=== PATIENT | male | born 1985 | race Hispanic/Latino ===

== ENCOUNTER 2022-11-02 14:30 | Emergency (ER) | payer BC ==
--- OUTSIDE RECORDS SUMMARY | 2022-11-02 14:34 | XMS REPORT | Continuity of Care Document ---
:1985 Author Organization [facility] t Address [address] [place] [address] Care Team Providers Name Role Phone JUVE CERNA Primary Care Physician Unavailable DR PARVIZ LEUNG Attending Clinician Unavailable [phone] Attending Clinician Unavailable [id number] Attending Clinician Unavailable [facility] DR JUVE CERNA Attending Clinician Unavailable [phone] Attending Clinician Unavailable Kj Attending Clinician Unavailable DR PARVIZ LEUNG Admitting Clinician Unavailable DR JUVE CERNA Admitting Clinician Unavailable Kj Admitting Clinician Unavailable Payers Payer Name Policy Type Policy Number Effective Date Expiration Date S cole TOVAR CROSS [place] [id number] [facility] [place] [id number] 2021 00:00:00 [place] Problems Condition Condition Condition Status Onset Resolution Last Treating Co mments Source Name Details Category Date Date Treatment Clinician Date Dizziness Dizziness Problem Active [facility] 6-05 da 00:00: Medical 00 Group Prediabete Prediabete Problem Active [facility] s s 6-05 da 00:00: Medical 00 Group Patient Patient Problem Active [facility] new to New to 6-05 da provider Provider 00:00: Medica l 00 Group Benign Benign Problem Active [facility] essential Essential 6-05 da hypertensi Hypertensi 00:00: Me dical on on 00 Group Gastroesop Gastroesop Problem Active [facility] hageal hageal 6-05 da reflux Reflux 00:00: Medical disease Disease 00 Group without without esophagiti Esophagiti s s Allergies, Adverse Reactions, Alerts This patient has no known allergies or adverse reactions. Social History Social Habit Start Date Stop Date Quantity Comments Source Gender identity [facility] History of Social 2022-10-25 2022-10-25 [facility] function 00:00:00 00:00:00 Sex Ass[birth year] Met [facility] 00:00:00 00:00:00 Smoking Status Start Date Stop Date Source Heavy Tobacco Smoker [facility] Tobacco smoking consumption unknown [facility] Medications Ordered Filled Start Stop Current Ordering Indication Dosage Frequency Signature Comments Components Source Medication Medication Date Date Medication? Clinician (SIG) Name Name acetaminoph 2022- [place] [address] 1{tbl} Q6H Take 1-2 Method[facility] en-codeine 10-25-[address] (TYLENOL 00:00: 04:59 mouth Hospita WITH 00 :00 every 6 l CODEINE #3) (six) 300-30 mg hours as per tablet needed for moderate pain for up to 5 days .acute pain. cyclobenzap 2022- No 10mg Q.5D Take 1 Met hodi rine 10-25-10 tablet (10 st (FLEXERIL) 00:00: 04:59 mg total) H ospita 10 mg 00 :00 by mouth 2 l tablet (two) times a day as needed for muscle spasms for up to 5 days. methylPREDN 2022- No follow Met hodi ISolone 10-25-[address] (MEDROL 00:00: 04:59 directions Hos mick DOSEPAK) 4 00 :00 l mg tablet lisinopril lisinopril No lisinopril [facility] 20 mg 20 mg 20 mg da tablet TAKE tablet TAKE tablet Medical 1 TABLET 1 TABLET TAKE 1 Group (20 MG) BY (20 MG) BY TABLET (20 ORAL ROUTE ORAL ROUTE MG) BY ONCE DAILY ONCE DAILY ORAL ROUTE ONCE DAILY metformin metformin No metformin [facility] 500 mg 500 mg 500 mg da tablet TAKE tablet TAKE tablet Medical 1 TABLET 1 TABLET TAKE 1 Group (500 MG) BY (500 MG) BY TABLET ORAL ROUTE ORAL ROUTE (500 MG) ONCE DAILY ONCE DAILY BY ORAL ROUTE ONCE DAILY pantoprazol pantoprazol No 1 Q1D pantoprazo [place] e 40 mg e 40 mg le 40 mg da tablet,harsha tablet,harsha tablet,del Medical yed release yed release ayed G roup Take 1 Take 1 release tablet tablet Take 1 every day every day tablet by oral by oral every day route. route. by oral route. Vital Signs Vital Name Observation Time Observation Value Comments Source BP Diastolic 2021-11-24 00:00:00 86 mm[Hg] [facility] Height 2021-11-24 00:00:00 66 [in_i] [facility] BMI (Body Mass 2021-11-24 00:00:00 37.9 kg/m2 [facility]) Group BP Systolic 2021-11-24 00:00:00 127 mm[Hg] [facility] Body Weight 2021-11-24 00:00:00 3760 [oz_av] [facility] Systolic blood 2022-10-25 17:20:58 138 mm[Hg] [facility] pressure Diastolic blood 2022-10-25 17:20:58 81 mm[Hg] [facility] pressure Heart rate 2022-10-25 17:20:58 79 /min [facility] Body temperature 2022-10-25 17:20:58 36.56 [facility] Respiratory rate 2022-10-25 17:20:58 18 /min [facility] Oxygen saturation in 2022-10-25 17:20:58 99 /min [facility] Arterial blood by Pulse oximetry Body height 2022-10-25 17:20:00 167.6 cm [facility] Body weight 2022-10-25 17:20:00 113.399 kg [facility] BMI 2022-10-25 17:20:00 40.35 kg/m2 [facility] Procedures This patient has no known procedures. Plan of Care Planned Activity Planned Date Details Comments Source Diagnostic Test Pending 2021-11-24 CMP, serum or [facility] 00:00:00 plasma [code = Group CMP, serum or plasma] Diagnostic Test Pending 2021-11-24 lipid panel, [facility] 00:00:00 serum [code = Group lipid panel, serum] Diagnostic Test Pending 2021-11-24 [facility] [code = TSH Group + free T4, serum] Diagnostic Test Pending 2021-11-24 HbA1c (hemoglobin [facility] 00:00:00 A1c), blood [code Group = HbA1c (hemoglobin A1c), blood] Diagnostic Test Pending 2021-11-24 microalbumin/crea [facility] 00:00:00 tinine, mass Group ratio, urine [code = microalbumin/crea tinine, mass ratio, urine] Diagnostic Test Pending 2021-11-24 urinalysis, [facility] 00:00:00 reflex culture Group [code = urinalysis, reflex culture] Instructions [facility] Encounters Start End Encounter Admission Attending Care Care Encounter Source Date/Time Date/Time Type Type Clinicians Facility Department ID 2022-07-09 Outpatient ELCAMPO ELCAMPO [id number] El 13:23:48 [id number] [facility] 2022-06-29 Outpatient PARVIZ LEUNG [place] [place] [place] [id number] [place] 08:28:18 [id number] [facility] [place] [facility] [id number] [facility] 2022-06-26 Outpatient ELCAMPO ELCAMPO [id number] El 12:36:33 [id number] [facility] 2022-10-25 2022-10-25 Emergency Whyte, [id number] [facility] 12:44:00 13:31:00 Adriel [id number] 3.430.2.7 Hospit a .[id number] l .8 2022-10-25 2022-10-25 Emergency [facility] [id number] 00:00:00 00:00:00 ADRIEL Wilcox [facility] 2022-10-25 2022-10-25 Travel [id number] [facility] 00:00:00 00:00:[id number] 3.430.2.7 0.2.7.3.698 Ho spita .[id number] 084.8 l .8 2022-07-09 2022-07-09 Outpatient N JUVE CERNAPO NON [facility] [id number] El 13:33:00 13:33:00 [id number] [facility] 2022-02-21 2022-02-21 Outpatient [facility]uniga[facility]S [facility] [id number] [facility] 00:00:00 00:00:00 [id number] da Medical Group 2022-01-17 2022-01-17 Outpatient [facility] [id number] [facility] 00:00:00 00:00:00 0727 da Medical Group 2021-11-30 2021-11-30 Outpatient Zuniga_S [facility] [id number] [facility] 05:53:00 05:53:00 [id number] Medical Group 2021-11-24 2021-11-24 Outpatient Zuniga_S [facility] [id number] [place] 09:42:00 09:42:00 0603 da Medical Group 2021-11-24 2021-11-24 Nilsa [facility] [place] - [id number] [facility] 00:00:00 00:00:00 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 2021-11-23 2021-11-23 Outpatient [facility]uniga_S [facility] [id number] [facility] 12:57:00 12:57:00 0602 Medical Group Results This patient has no known results.
[2022-11-02] MEDS ORDERED: GABAPENTIN 300 MG CAP ONE (15:14)
[2022-11-02] MEDS ORDERED: KETOROLAC 30 MG/ML INJ ONE (15:14)
[2022-11-02] MEDS ORDERED: DIAZEPAM 5 MG TABLET ONE (15:14)
--- NOTE | 2022-11-02 16:32 | ER ---
Nurse's Notes [facility] Name: Wojciech Mesa Age: 37 yrs Sex: Male : 1985 Arrival Date: 11/02/2022 Time: 14:30 Bed 15 Private MD: Diagnosis: Low back pain;Radiculopathy, lumbar region Presentation: 11/02 14:56 Chief complaint: Severe low back pain that radiates to leg after chiropractor treatment hb yesterday. Coronavirus screen: At this time, the client does not indicate any symptoms associated with coronavirus-19. Ebola Screen: No symptoms or risks identified at this time. Initial Sepsis Screen: Does the patient meet any 2 criteria? No. Patient's initial sepsis screen is negative. Does the patient have a suspected source of infection? No. Patient's initial sepsis screen is negative. Risk Assessment: Do you want to hurt yourself or someone else? Patient reports no desire to harm self or others. Onset of symptoms was November 02, 2022. 14:56 Method Of Arrival: Wheelchair hb 14:56 Acuity: ARUNA 3 hb Historical: - Allergies: 14:57 No Known Allergies; hb - Home Meds: 14:57 Lisinopril Oral [Active]; Metformin Oral [Active]; hb - PMHx: 14:57 Hypertension; hb - PSHx: 14:58 None; hb - Immunization history:: Adult Immunizations up to date. - Social history:: Smoking status: Patient reports the use of cigarette tobacco products, smokes one-half pack cigarettes per day. Vital Signs: 14:56 BP 140 / 103; Pulse 62; Resp 16; Temp 98; Pulse Ox 100% ; Weight 113.4 kg; Height 5 ft. hb 6 in. ; Pain 10/10; 16:00 BP 117 / 91; Pulse 54; Resp 18; Pulse Ox 99% on R/A; eh3 14:56 Body Mass Index 40.35 (113.40 kg, 167.64 cm) hb 14:56 Pain Scale: Adult hb ED Course: 14:35 Patient arrived in ED. ts1 14:50 Latesha De Guzman FNP-C is [facility]. snw 14:50 Narciso Lutz MD is Attending Physician. snw 14:57 Triage completed. hb 14:58 Arm band placed on. hb 14:59 Ledy Monteiro, RN is Primary Nurse. 3 Administered Medications: 15:15 Drug: Ketorolac IM 30 mg Route: IM; Site: left deltoid; 3 16:15 Follow up: Response: No adverse reaction eh3 15:15 Drug: Gabapentin PO 600 mg Route: PO; eh3 16:15 Follow up: Response: No adverse reaction 3 15:15 Drug: Diazepam PO 10 mg Route: PO; eh3 16:15 Follow up: Response: No adverse reaction 3 Outcome: 16:32 Discharge ordered by . snw 16:53 Patient left the ED. zm Signatures: Latesha De Guzman, GAUGE MAKER APPRENTICE-C GAUGE MAKER APPRENTICE-Csnw Delaney Lane RN RN hb Hall, Erin, JOSE RN 3 Jessica Marley Tanya, PAS BANNER ts1
--- NOTE | 2022-11-02 16:32 | EDPHYS ---
Physician Documentation [facility] Name: Wojciech Mesa Age: 37 yrs Sex: Male : 1985 Arrival Date: 11/02/2022 Time: 14:30 Bed 15 Private MD: ED Physician Narciso Lutz HPI: 11/02 15:05 This 37 yrs old Male presents to ER via Wheelchair with complaints of Back snw Pain. 15:05 The patient presents with pain that is acute, s/p chiropractic manipulation yesterday. snw The symptoms are located in the low back. Onset: The symptoms/episode began/occurred acutely. The pain radiates to the right gluteal fold, right hamstring, posterior aspect of right knee and right calf. Associated signs and symptoms: The patient has no apparent associated signs or symptoms. The problem was sustained pt has hx of low back pain, was seeing trippiece, went somewhere else yesterday, x-rays performed prior to manipulation. Pt states when he awoke to get out of bed for work, he was unable to move. no incontinence. Severity of symptoms: At their worst the symptoms were moderate, severe. The patient has experienced similar episodes in the past, but today's symptoms are worse, more painful. as noted. Historical: - Allergies: 14:57 No Known Allergies; hb - Home Meds: 14:57 Lisinopril Oral [Active]; Metformin Oral [Active]; hb - PMHx: 14:57 Hypertension; hb - PSHx: 14:58 None; hb - Immunization history:: Adult Immunizations up to date. - Social history:: Smoking status: Patient reports the use of cigarette tobacco products, smokes one-half pack cigarettes per day. ROS: 15:03 Constitutional: Negative for fever, chills, and weight loss, Eyes: Negative for injury, snw pain, redness, and discharge, ENT: Negative for injury, pain, and discharge, Neck: Negative for injury, pain, and swelling, Cardiovascular: Negative for chest pain, palpitations, and edema, Respiratory: Negative for shortness of breath, cough, wheezing, and pleuritic chest pain, Abdomen/GI: Negative for abdominal pain, nausea, vomiting, diarrhea, and constipation, : Negative for injury, bleeding, discharge, and swelling, MS/Extremity: Negative for injury and deformity, Skin: Negative for injury, rash, and discoloration, Neuro: Negative for headache, weakness, numbness, tingling, and seizure, Psych: Negative for depression, anxiety, suicide ideation, homicidal ideation, and hallucinations. 15:03 Back: Positive for decreased range of motion, pain at rest, pain with movement, of the low back area. Exam: 15:02 Constitutional: This is a well developed, well nourished patient who is awake, alert, snw and in no acute distress. Head/Face: Normocephalic, atraumatic. Eyes: Pupils equal round and reactive to light, extra-ocular motions intact. Lids and lashes normal. Conjunctiva and sclera are non-icteric and not injected. Cornea within normal limits. Periorbital areas with no swelling, redness, or edema. ENT: Nares patent. No nasal discharge, no septal abnormalities noted. Tympanic membranes are normal and external auditory canals are clear. Oropharynx with no redness, swelling, or masses, exudates, or evidence of obstruction, uvula midline. Mucous membranes moist. Neck: Trachea midline, no thyromegaly or masses palpated, and no cervical lymphadenopathy. Supple, full range of motion without nuchal rigidity, or vertebral point tenderness. No Meningismus. Chest/axilla: Normal chest wall appearance and motion. Nontender with no deformity. No lesions are appreciated. Cardiovascular: Regular rate and rhythm with a normal S1 and S2. No gallops, murmurs, or rubs. Normal PMI, no JVD. No pulse deficits. Respiratory: Lungs have equal breath sounds bilaterally, clear to auscultation and percussion. No rales, rhonchi or wheezes noted. No increased work of breathing, no retractions or nasal flaring. Abdomen/GI: Soft, non-tender, with normal bowel sounds. No distension or tympany. No guarding or rebound. No evidence of tenderness throughout. Skin: Warm, dry with normal turgor. Normal color with no rashes, no lesions, and no evidence of cellulitis. 15:02 Back: pain, that is moderate, of the low back area, ROM is painful, with all movement, decreased, with flexion, normal spinal alignment noted, CVA tenderness, is absent, muscle spasm, is appreciated in the low back area, seated in wheelchair with right leg extended, pain 10/10 per report with radiation to foot, + peripheral pulses. 16:36 Neuro: Motor: pain to right lower back and right leg with movement, Sensation: is snw normal, Gait: not tested. Vital Signs: 14:56 BP 140 / 103; Pulse 62; Resp 16; Temp 98; Pulse Ox 100% ; Weight 113.4 kg; Height 5 ft. hb 6 in. ; Pain 10/10; 16:00 BP 117 / 91; Pulse 54; Resp 18; Pulse Ox 99% on R/A; eh3 14:56 Body Mass Index 40.35 (113.40 kg, 167.64 cm) hb 14:56 Pain Scale: Adult hb MDM: 14:51 Patient medically screened. snw 16:37 Differential diagnosis: arthritis, Osteoarthritis sprain. Data reviewed: vital signs, snw nurses notes. Counseling: I had a detailed discussion with the patient and/or guardian regarding: the historical points, exam findings, and any diagnostic results supporting the discharge/admit diagnosis, the presence of at least one elevated blood pressure reading (>120/80) during this emergency department visit, the need for outpatient follow up, for definitive care, to return to the emergency department if symptoms worsen or persist or if there are any questions or concerns that arise at home. Special discussion: I have referred the patient to see his PCP for further evaluation of high blood pressure. Based on the history and exam findings, there is no indication for further emergent testing or inpatient evaluation. I discussed with the patient/guardian the need to see the back specialist for further evaluation of the symptoms. I discussed with the patient/guardian the need to see the primary care provider for further evaluation of the symptoms. ED course: x-rays per chiropractor yesterday. 11/02 16:18 Order name: Recheck VS; Complete Time: 16:22 snw Administered Medications: 15:15 Drug: Ketorolac IM 30 mg Route: IM; Site: left deltoid; 3 16:15 Follow up: Response: No adverse reaction eh3 15:15 Drug: Gabapentin PO 600 mg Route: PO; eh3 16:15 Follow up: Response: No adverse reaction eh3 15:15 Drug: Diazepam PO 10 mg Route: PO; eh3 16:15 Follow up: Response: No adverse reaction eh3 Disposition: 17:17 Co-signature as Attending Physician, Narciso Lutz MD I agree with the assessment and kdr plan of care. Disposition Summary: 11/02/22 16:32 Discharge Ordered Location: Home snw Condition: Stable snw Diagnosis - Low back pain snw - Radiculopathy, lumbar region snw Followup: snw - With: Emergency Department - When: As needed - Reason: Worsening of condition Followup: snw - With: Private Physician - When: 2 - 3 days - Reason: Recheck today's complaints, Continuance of care, Re-evaluation by your physician Discharge Instructions: - Discharge Summary Sheet snw - Acute Back Pain, Adult snw - Hypertension, Adult snw - Rehydration, Adult snw - Heat Therapy snw - Radicular Pain snw - Form - Blood Pressure Record Sheet snw - Diabetes Mellitus Basics snw Forms: - Work release form snw - Medication Reconciliation Form snw - Thank You Letter snw - Antibiotic Education snw - Prescription Opioid Use snw Prescriptions: - Metformin 500 mg Oral Tablet - take 1 tablet by ORAL route once daily for 7 days Then take 1 tablet with snw morning meals AND evening meals; 21 tablet; Refills: 0, Product Selection Permitted - Lisinopril 5 mg Oral Tablet - take 1 tablet by ORAL route once daily; 20 tablet; Refills: 0, Product snw Selection Permitted - Diclofenac Sodium 75 mg Oral Tablet Sustained Release - take 1 tablet by ORAL route 2 times per day; 30 tablet; Refills: 0, Product snw Selection Permitted - orphenadrine citrate 100 mg Oral Tablet Sustained Release - take 1 tablet by ORAL route 2 times per day As needed; 20 tablet; Refills: 0, snw Product Selection Permitted - Pepcid 20 mg Oral Tablet - take 1 tablet by ORAL route once daily; 20 tablet; Refills: 0, Product snw Selection Permitted Signatures: Narciso Lutz MD MD kdr Waters, Shelly, FNP-C PROTECTIVE SIGNAL REPAIRER-Csnw Delaney Lane, RN RN Ledy Monteiro RN RN eh3
[2022-11-02 17:03] VITALS: TEMP 98
[2022-11-02 17:04] VITALS: BP 117/91; O2SAT 99
== END 2022-11-02 16:53 | disposition home or self-care (01) ==
LOC: ER 14:30
DX: M54.16 Radiculopathy, lumbar region (principal); F17.210 Nicotine dependence, cigarettes, uncomplicated
CPT/HCPCS: 96372; 99284